=== PATIENT | male | born 1990 | race Caucasian/White ===

== ENCOUNTER 2018-01-22 19:55 | Emergency (ER) | payer OTHER ==
[2018-01-22 20:08] VITALS: BP 129/71
--- NOTE | 2018-01-22 20:20 | ED ---
Psychiatric Complaint - HPI Summary HPI Summary: 27M presents for medication refill today. His psychiatrist sent him in for medication refills. He was told he would have an emergency trip for work next [place] from [place]. He has never traveled overseas. He states that sometimes he gets extremely panic attacks and the klonopin helps. This happened frequently three years ago but has not happened in a while. He does not want be overseas and not have medication. He brought paperwork from his psychiatrist with the request He denies any suicidal or homicidal thoughts. He has been started take hydroxyzine more frequently causes anxiety has increased recently. had panic attack that was severe two weeks ago. has never traveled overseas and is nervous. - History Of Current Complaint Chief Complaint: UCMedRefill Time Seen by Provider: 01/22/18 20:10 - Allergies/Home Medications Allergies/Adverse Reactions: Allergies Allergy/AdvReac Type Severity Reaction Status Date / Time No Known Allergies Allergy Verified 01/22/18 20:03 PMH/Surg Hx/FS Hx/Imm Hx Endocrine/Hematology History: Denies: Hx Anticoagulant Therapy Psychiatric History: Reports: Hx Anxiety - Surgical History Surgery Procedure, Year, and Place: Hydrocele removed 2010. [place] teeth removal Infectious Disease History: No Infectious Disease History: Denies: Traveled Outside the [place] in Last 30 Days - Family History Known Family History: Negative: Diabetes - Social History Alcohol Use: Weekly Substance Use Type: Reports: None Smoking Status (MU): Never Smoked Tobacco Review of Systems Negative: Fever Negative: Chest Pain Negative: Shortness Of Breath Positive: Anxious All Other Systems Reviewed And Are Negative: Yes Physical Exam Triage Information Reviewed: Yes Vital Signs On Initial Exam: Initial Vitals Temp Pulse Resp BP Pulse Ox 98.3 F 66 18 129/71 100 01/22/18 20:03 01/22/18 20:03 01/22/18 20:03 01/22/18 20:03 01/22/18 20:03 Vital Signs Reviewed: Yes Appearance: Positive: Well-Appearing Skin: Positive: Warm, Dry Head/Face: Positive: Normal Head/Face Inspection Eyes: Positive: Normal, Conjunctiva Clear Respiratory/Lung Sounds: Positive: Clear to Auscultation, Breath Sounds Present Cardiovascular: Positive: Normal, RRR Musculoskeletal: Positive: Normal Neurological: Positive: Normal Psychiatric: Positive: Anxious Diagnostics - Vital Signs Vital Signs Temp Pulse Resp BP Pulse Ox 01/22/18 20:03 98.3 F 66 18 129/71 100 - Laboratory Lab Statement: Any lab studies that have been ordered have been reviewed, and results considered in the medical decision making process. Course/Dx - Course Course Of Treatment: 27M presents for medication refill today. His psychiatrist sent him in for medication refills. He was told he would have an emergency trip for work next week from [place]. He has never traveled overseas. He states that sometimes he gets extremely panic attacks and the klonopin helps. This happened frequently three years ago but has not happened in a while. He does not want be overseas and not have medication. He brought paperwork from his psychiatrist with the request He denies any suicidal or homicidal thoughts. He has been started take hydroxyzine more frequently causes anxiety has increased recently. had panic attack that was severe two weeks ago. has never traveled overseas and is nervous. on exam normal exam. appears anxious. has paperwork from psychologist. has not been on this medication for 3 years but was prescribed such in [place]. will prescribe klonipin for two days but told needs a primary for continued medication. patient understand and agrees with plan. - Differential Dx/Clinical Impression Differential Diagnosis/HQI/PQRI: Positive: Anxiety, Other - medication refill Provider Diagnosis: Anxiety, Medication refill Discharge - Sign-Out/Discharge Documenting (check all that apply): Discharge/Admit/Transfer - Discharge Plan Condition: Good Disposition: HOME Prescriptions: clonazePAM TAB(*) [KlonoPIN TAB(*)] 0.5 mg PO TID PRN #6 tab MDD 3 PRN Reason: Anxiety hydrOXYzine HCL TAB* [Atarax TAB 50 MG *] 50 mg PO QID PRN #30 tab PRN Reason: Anxiety Patient Education Materials: Anxiety (ED) Referrals: [facility] [place] [facility] [Outside] Additional Instructions: take hydroxyzine every 6 hours as needed for anxiety Take klonopin if have panic attack up to three times a day Establish care with primary for continued medication refill Return to ED if develop any new or worsening symptoms - Billing Disposition and Condition Condition: GOOD Disposition: HOME
== END 2018-01-22 20:30 | disposition home or self-care (01) ==
LOC: UCEAST 19:55
DX: F41.9 Anxiety disorder, unspecified (principal); Z76.0 Encounter for issue of repeat prescription
CPT/HCPCS: 99212; G0463

== ENCOUNTER 2018-06-03 19:40 | Emergency (ER) | payer OTHER ==
[2018-06-03 19:50] VITALS: BP 115/69
--- NOTE | 2018-06-03 20:15 | UC ---
Lower Extremity/Ankle HPI - HPI Summary HPI Summary: The patient is a 27-year-old male that presents here for evaluation of left ankle pain. He injured his left ankle initially during a motocross race about a week ago. He had a few days of moderate pain as well as limp but then was able to get around okay. Tonight he reinjured his left ankle again during a motocross incident. He has painful weightbearing. Pain is located laterally. - History of Current Complaint Chief Complaint: UCLowerExtremity Stated Complaint: ANKLE INJURY Time Seen by Provider: 06/03/18 20:01 Hx Obtained From: Patient Onset/Duration: Sudden Onset, Lasting Days Severity Initially: Moderate Severity Currently: Mild Pain Intensity: 4 Pain Scale Used: 0-10 Numeric Aggravating Factor(s): Standing, Ambulation Alleviating Factor(s): Rest Able to Bear Weight: Yes Feet (Multiple View): 1 - tender /swollen - Allergies/Home Medications Allergies/Adverse Reactions: Allergies Allergy/AdvReac Type Severity Reaction Status Date / Time No Known Allergies Allergy Verified 06/03/18 19:50 Home Medications: Home Medications Acetaminophen [Pain Relief] 1,000 mg PO ONCE PRN 06/03/18 [History Confirmed 03/15] Ibuprofen TAB* [Advil TAB*] 400 mg PO ONCE PRN 06/03/18 [History Confirmed 06/03] LORazepam TAB(*) [Ativan 0.5 MG TAB (*)] 0.5 mg PO PRN 06/03/18 [History] Sertraline* [Zoloft*] 100 mg PO DAILY 06/03/18 [History Confirmed 06/03/18] PMH/Surg Hx/FS Hx/Imm Hx Previously Healthy: Yes Other History Of: Negative For: Anticoagulant Therapy - Surgical History Surgical History: Yes Surgery Procedure, Year, and Place: Hydrocele removed 2010. [place] teeth removal - Family History Known Family History: Positive: Cardiac Disease, Other - dyslipidemia Negative: Diabetes - Social History Alcohol Use: Occasionally Substance Use Type: None Smoking Status (MU): Never Smoked Tobacco Review of Systems Constitutional: Negative Skin: Negative Eyes: Negative ENT: Negative Respiratory: Negative Cardiovascular: Negative Gastrointestinal: Negative Genitourinary: Negative Motor: Negative Neurovascular: Negative Musculoskeletal: Arthralgia Neurological: Negative Psychological: Negative All Other Systems Reviewed And Are Negative: Yes Physical Exam Triage Information Reviewed: Yes Appearance: Well-Appearing, No Pain Distress, Well-Nourished Vital Signs: Initial Vital Signs Temp 97.3 F 06/03/18 19:46 Pulse 69 06/03/18 19:46 Resp 16 06/03/18 19:46 BP 115/69 06/03/18 19:46 Pulse Ox 100 06/03/18 19:46 Vital Signs Reviewed: Yes Eyes: Positive: Conjunctiva Clear ENT: Positive: Hearing grossly normal. Negative: Nasal congestion, Nasal drainage, Trismus, Muffled voice, Hoarse voice Neck: Positive: Supple Respiratory: Positive: Lungs clear, Normal breath sounds, No respiratory distress, No accessory muscle use Cardiovascular: Positive: RRR Musculoskeletal: Positive: ROM Intact, Edema @ - left LM, Other: - antalgic gait Neurological: Positive: Alert Psychological Exam: Normal Skin Exam: Normal Diagnostics - Radiology No standard instances Xray Interpretation: Positive (See Comments) - lat STS, joint effusion, no fx Radiology Interpretation Completed By: ED Physician Lower Extremity Course/Dx - Differential Dx/Diagnosis Provider Diagnoses: left ankle sprain Discharge - Sign-Out/Discharge Documenting (check all that apply): Patient Departure All imaging exams completed and their final reports reviewed: No - Discharge Plan Condition: Stable Disposition: HOME Patient Education Materials: Ankle Sprain (ED), Ankle Stirrup Splint (ED), R.I.C.E. Treatment (ED) Referrals: Jb Hunt MD [Primary Care Provider] - [facility] [Outside] - 5 Days Additional Instructions: aleve or advil for pain - Billing Disposition and Condition Condition: STABLE Disposition: Home
--- NOTE | 2018-06-04 07:58 | RAD ---
Indication: Lateral pain and swelling LEFT ankle following multiple injuries. Comparison: No relevant prior exams available on the [facility] for comparison. Technique: AP, mortise, and lateral views LEFT ankle. REPORT AND IMPRESSION: #. Negative for fracture or malalignment. #. Talocrural joint effusion. #. Moderate lateral soft tissue swelling. R0
--- NOTE | 2018-06-04 08:08 | UC ---
- EKG/XRAY/CT XRAY: ankle Xray Comments: wet read correct Discharge - Sign-Out/Discharge Documenting (check all that apply): Post-Discharge Follow Up All imaging exams completed and their final reports reviewed: Yes - Discharge Plan Condition: Stable Disposition: HOME Patient Education Materials: Ankle Sprain (ED), Ankle Stirrup Splint (ED), R.I.C.E. Treatment (ED) Referrals: [facility] [Outside] - 5 Days Jb Hunt MD [Primary Care Provider] - Additional Instructions: aleve or advil for pain - Billing Disposition and Condition Condition: STABLE Disposition: Home
== END 2018-06-03 20:55 | disposition home or self-care (01) ==
LOC: UCEAST 19:40
DX: S93.402A Sprain of unspecified ligament of left ankle, initial encounter (principal); X58.XXXA Exposure to other specified factors, initial encounter; Y93.I9 Activity, other involving external motion; Y92.9 Unspecified place or not applicable
CPT/HCPCS: 99213; G0463